=== PATIENT | male | born 1945 | race Caucasian/White ===

== ENCOUNTER 2023-12-01 15:03 | Outpatient (CLI) | payer MEDICARE, SELFPAY ==
--- NOTE | ~2023-12-01 | MR_ITS ---
EXAMINATION: MR abdomen wo/w con DATE: 12/01/2023 16:15 INDICATION: Liver mass TECHNIQUE: Magnetic resonance imaging (MRI) of the abdomen was performed without and with 15 mL Multi stanislav intravenous contrast. Sequences included coronal T2-weighted SS-FSE, coronal and axial FS 2D-F IESTA, axial STIR FSE, axial T2-weighted SS-FSE, axial T2-weighted FS SS-FSE, axial diffusion-weighte d SE, axial dual-echo T1-weighted FSPGR, and axial and coronal T1-weighted LAVA. Postcontrast axial T 1-weighted LAVA images were obtained in a time course. Postcontrast coronal T1-weighted LAVA images w ere obtained. COMPARISON: None. FINDINGS: Heart size is normal. No pericardial or pleural effusion. There are a few T2 hyperintense nonenhancin g cysts scattered throughout the liver the largest in the left hepatic lobe measuring 2.7 cm and 1.5 cm and the remainder all less than 1 cm. There are also a couple T2 hyperintense nodules the liver me asuring 1.1 cm in the right hepatic lobe, and 1.3 cm in the left hepatic lobe which demonstrate rela tively intense early peripheral enhancement which progressively fills in remaining visible with no wa shout on the 10 minute delayed images which would be most consistent with hemangiomas. 1.2 cm and 4 m m T2 hyperintense nonenhancing left renal cyst. Right kidney is normal. Bilateral adrenal glands, gonzáles creas, gallbladder and spleen are normal. Visualized portions of bowels are unremarkable. No patholog ically enlarged abdominal lymphadenopathy. There are several T1 hyperintense and fat saturating heman giomas in the thoracic and lumbar spine. Severe lumbar spondylosis. IMPRESSION: 1. Combination of a few hepatic cysts and hemangiomas scattered throughout the liver as detailed abov e. Reviewed, dictated and finalized at location [facility]. IMPRESSION: 1. Combination of a few hepatic cysts and hemangiomas scattered throughout the liver as detailed above.
== END 2023-12-01 15:04 ==
LOC: MICIMG 15:05
PROVIDERS: PCP Urology; Visit Provider Urology
DX: C61 Malignant neoplasm of prostate (principal)
CPT/HCPCS: 74183; A9577

== ENCOUNTER 2024-07-21 20:55 | Emergency (ER) | payer MEDICARE, SELFPAY ==
[2024-07-21] VITALS (14 sets, daily range): BP systolic 106–125; BP diastolic 76–94; PULSE 93–116; RESP 14–39; TEMP 36.4; O2SAT 97–100
--- NOTE | ~2024-07-21 | CT_ITS ---
EXAMINATION: CT brain wo con DATE: 07/21/2024 21:27 INDICATION: Change in mental status TECHNIQUE: Computed tomography (CT) of the head was performed without intravenous contrast. The mA wa s adjusted according to patient size. Iterative reconstruction technique was employed. Exam dose: 75 6.67 mGy-cm total exam DLP. COMPARISON: None FINDINGS: There is a large subdural hematoma along the right frontal, parietal, temporal and occipita l regions with effacement of the underlying cortical sulci and midline structures. There is a small posterior left occipital acute subdural hematoma. There is a contusion along the medial aspect of the left frontal lobe Prominent bilateral vertebral artery calcification, basilar artery and prominent bilateral carotid si phon internal carotid artery calcifications. The mastoid air cells and paranasal sinuses are normally developed and aerated; there is however 12 x 13.7 mm polyp or mucus retention cyst in the lower right maxillary sinus No skull fracture or bone destruction is detected. IMPRESSION: Right acute subdural hematoma and small posterior left occipital acute subdural hematoma , contusion of the medial left frontal lobe. There is leftward shift of the midline. Dr. Lemus telephoned the report including the acute subdural hematomas 2 Rosa Maria, physician personal assistant, o n 07/20 08/02 and 19/11/2019 0138 hours Reviewed, dictated and finalized at [facility]. Reviewed, dictated and finalized at [facility]. ROUTEMAN IMPRESSION: Right acute subdural hematoma and small posterior left occipital a cute subdural hematoma, contusion of the medial left frontal lobe. There is lef tward shift of the midline. Dr. Lemus telephoned the report including the acute subdural hematomas 2 Rosa Maria physician personal assistant, on 07/20 08/02 and 19/11/2019 0138 hours
--- NOTE | 2024-07-21 20:59 | ED_ITS ---
HPI - General Adult General Chief complaint: Altered Mental Status Stated complaint: altered mental status History of Present Illness HPI narrative: 78-year-old male presents to the emergency department for evaluation for a repeat head CT. Patient had a fall on on July 10. Patient reports that he needed assistance tonight at the rehab facility and was calling out for help. care home was concerned that the patient was more confused during the episode and had him transported the emergency department for evaluation. Upon arrival to the ED patient is alert and oriented in denies any complaints at this time. Related Data Home Medications ?Medication ?Instructions ?Recorded ?Confirmed ?Last Taken ?Type acetaminophen 500 mg capsule 500 mg PO Q4H PRN pain 07/20/24 07/20/24 Unknown History apixaban 5 mg tablet 5 mg PO BID 07/20/24 07/20/24 Unknown History enoxaparin 30 mg/0.3 mL 30 mg subcut Q12H 07/20/24 07/20/24 Unknown History subcutaneous syringe levetiracetam 500 mg tablet 500 mg PO BID 07/20/24 07/20/24 Unknown History (Keppra) melatonin 3 mg tablet 3 mg PO HS 07/20/24 07/20/24 Unknown History paroxetine HCl 30 mg tablet 30 mg PO QAM 07/20/24 07/20/24 Unknown History polyethylene glycol 3350 17 gram 17 g PO DAILY 07/20/24 07/20/24 Unknown History oral powder packet (Miralax) sennosides 8.6 mg tablet (Senna 8.6 mg PO DAILY 07/20/24 07/20/24 Unknown History Laxative) simvastatin 20 mg tablet 20 mg PO DAILY 07/20/24 07/20/24 Unknown History simvastatin 20 mg tablet 20 mg PO HS 07/20/24 07/20/24 Unknown History sodium chloride 1,000 mg soluble 1,000 mg PO BID 07/20/24 07/20/24 Unknown History tablet tamsulosin 0.4 mg capsule (Flomax) 0.4 mg PO DAILY 07/21/24 07/21/24 Unknown History Allergies Allergy/AdvReac Type Severity Reaction Status Date / Time No Known Allergies Allergy Verified 07/21/24 21:02 Review of Systems Review of Systems: All systems reviewed & are unremarkable except as noted in HPI and below PMFSH Past Medical History Medical History (Updated 07/21/24 @ 23:21 by Cristobal Sauceda MD) DJD (degenerative joint disease) of knee Atrial fibrillation Prostate cancer HTN (hypertension) Anxiety and depression Social History Social History Smoking status: Never smoker Alcohol intake: former Substance use: never Do You Feel Safe in your Home?: Yes Lack of Transportation: No Lack of Food: Never True Current Housing: I Have Housing Concerned About Future Housing: No Difficulty Paying Gas/Electric Bills: No Difficulty Paying for Meds: No Currently Unemployed: No Education: High School Diploma/GED Difficulty w/ Childcare or Family Care: No Spiritual care concerns: No Course Vital Signs Vital signs: Vital Signs Pulse Rate 112 H 07/21/24 20:48 Respiratory Rate 18 07/21/24 20:48 Blood Pressure 112/76 07/21/24 20:48 Pulse Oximetry 99 07/21/24 20:48 Oxygen Delivery Room Air 07/21/24 20:48 Temperature 97.5 F L 07/21/24 20:58 Pulse Rate 111 H 07/22/24 04:35 Respiratory Rate 20 07/22/24 04:30 Blood Pressure 142/87 H 07/22/24 04:30 Pulse Oximetry 100 07/22/24 04:30 Oxygen Delivery Room Air 07/21/24 20:59 Medical Decision Making MDM Narrative Medical decision making narrative: 78-year-old male presents emergency department for evaluation for an episode increased confusion. Patient is back to his normal baseline. Head CT does show chronic changes. I discussed the case with Dr. Peterson who was on [facility] for neurosurgery and he reviewed the images with Dr. Lemus and he feels that the CT is actually improved. Since patient is back to his baseline and is following co mmands he was comfortable the patient being discharged back to the rehab facility. Differential Diagnosis Differential Diagnosis: Subdural hematoma, subarachnoid hemorrhage, UTI, COVID Vital Signs Vital Signs: Vital Signs Pulse Rate 112 H 07/21/24 20:48 Respiratory Rate 18 07/21/24 20:48 Blood Pressure 112/76 07/21/24 20:48 Pulse Oximetry 99 07/21/24 20:48 Oxygen Delivery Room Air 07/21/24 20:48 Temperature 97.5 F L 07/21/24 20:58 Pulse Rate 111 H 07/22/24 04:35 Respiratory Rate 20 07/22/24 04:30 Blood Pressure 142/87 H 07/22/24 04:30 Pulse Oximetry 100 07/22/24 04:30 Oxygen Delivery Room Air 07/21/24 20:59 Imaging Data Radiologist's impression: Impressions Head CT 07/21/24 21:31 IMPRESSION: Right acute subdural hematoma and small posterior left occipital acute subdural hematoma, contusion of the medial left frontal lobe. There is leftward shift of the midline. Dr. Lemus telephoned the report including the acute subdural hematomas 2 Rosa Maria, physician botany laboratory assistant, on 07/20 08/02 and 19/11/2019 0138 hours ADDENDUM: 07/21/24 2302 The right subdural hematoma appears acute/subacute and measures up to approximately 1.3 cm depth. There is approximately 5.8 mm the subacute/acute subdural along the anterior right falx. There is approximately 6 mm leftward midline shift. The left occipital acute subdural hematomas approximately 5.5 mm depth. Discharge Plan Discharge Clinical Impression: AMS (altered mental status), Subdural hematoma Patient Disposition: NH Group Home/Asst Living Condition: Stable Instructions: Antibiotic Form Additional Instructions: Your head CT today was improved compared to your recent head CTs at [facility]. No evidence of urinary tract infection. Continue have close follow-up with your physicians. If you have any worsening symptoms then please call or return to the emergency department. Patient Language: Faroese Prescriptions: No Action acetaminophen 500 mg capsule 500 mg PO Q4H PRN (Reason: pain) apixaban 5 mg tablet 5 mg PO BID enoxaparin 30 mg/0.3 mL syringe 30 mg subcut Q12H Patient Comments: for 4 days levetiracetam [Keppra] 500 mg tablet 500 mg PO BID melatonin 3 mg tablet 3 mg PO HS polyethylene glycol 3350 [Miralax] 17 gram powder in packet 17 g PO DAILY sennosides [Senna Laxative] 8.6 mg tablet 8.6 mg PO DAILY sodium chloride 1,000 mg tablet,soluble 1,000 mg PO BID Patient Comments: sodium chloride 1 gm take 2 tablets by mouth 3 times daily with meals simvastatin 20 mg tablet 20 mg PO DAILY simvastatin 20 mg tablet 20 mg PO HS paroxetine HCl 30 mg tablet 30 mg PO QAM tamsulosin [Flomax] 0.4 mg capsule 0.4 mg PO DAILY Follow-up/Referrals: Orly,Sg Curiel MD [Primary Care Provider] -
--- NOTE | 2024-07-21 21:02 | ECG_ITS ---
Test Date: 2024-07-21 20:57:58 Measurements Intervals Blanca Rate: 101 P: 0 RI: 0 QRS: 52 QRSD: 98 T: 43 QT: 378 QTc: 492 Interpretive Statements ATRIAL FIBRILLATION WITH RAPID VENTRICULAR RESPONSE VOLTAGE CRITERIA FOR LVH [MEETS CRITERIA IN ONE OF: R(aVL), S(V1), R(V5), R(V5/V6)+S(V1)] NONSPECIFIC ST & T-WAVE ABNORMALITY No previous ECG available for comparison Electronically Signed On 07-22-2024 10:23:13 [employer] SALES [employer]ENT by Aleyda Duong M.D.
--- NOTE | 2024-07-21 21:12 | PC.NURSE ---
Patient taken to CT via stretcher at this time.
--- NOTE | 2024-07-21 23:42 | PC.NURSE ---
Report called to PAUL Riley at [facility] at [id number].
[2024-07-22] VITALS (10 sets, daily range): BP systolic 122–142; BP diastolic 62–109; PULSE 94–135; RESP 15–28; O2SAT 97–100
--- NOTE | 2024-07-22 00:40 | PC.NURSE ---
Patients family member calls this RN into room. Patient requesting to rinse his mouth out in the bathroom. Patient informed that he is unable to get up at this time. patient given water and emesis bag to rinse his mouth. Patients family member notified that earliest ETA at this time for transport back is 0730. Patients family member states she is going to leave but requests med be given to patient to help calm his nerves. ERP notified of patients family member request. Patient also unsure of where he is at this time. ERP notified of patients increased confusion. Patient readjusted in bed, re oriented and given call light. No new orders at this time.
[2024-07-22] MEDS: LORazepam INJ (*CRX) 2 MG/ML VIAL 1 MG IV PUSH (00:56)
--- NOTE | 2024-07-22 02:36 | PC.NURSE ---
Patient more confused, stating he is at home and wants his clothes to be put into the front room on the couch. Patient stating I need my phone or that one over there, and I need my cane up against the wall over there. Patient reoriented to being in the ER, that there is no phone that he arrived with, no phone in the other room, no cane that he arrived with. Patient remains confused. Patient yelling out and trying to get up. Patient has call light in reach. Patient moved from H3 to room 6 to be monitored more closely. Patient reoriented. ERP notified of patients confusion and VS of HR in 120s.
--- NOTE | 2024-07-22 04:14 | PC.NURSE ---
Patient constantly removing monitoring equipment, and yelling. Patient confused on place, time, but oriented to his name. Patient constantly asking for a phone, and his home. Patient repeatedly reoriented to place, time and situation but patient immediately forgets. ERP aware of patients symptoms.
[2024-07-22] MEDS: METOPROLOL TARTRATE 25 MG TABLET PO (04:35)
--- NOTE | 2024-07-22 04:36 | PC.NURSE ---
Patient continues to yell and request a phone, his cane, his belongings to be placed in the front room of the house . Patient reoriented to place, time and situation and readjusted in the bed. VS taken, and call light within reach. Patient did agree to take his metoprolol PO. Patient tolerated well with a drink of water.
== END 2024-07-22 08:56 ==
PROVIDERS: Emergency Provider Emergency Medicine; PCP Internal Medicine
DX: S06.5XAD Traumatic subdural hemorrhage with loss of consciousness status unknown, subsequent encounter (principal); R41.82 Altered mental status, unspecified; I48.91 Unspecified atrial fibrillation; I10 Essential (primary) hypertension; M17.9 Osteoarthritis of knee, unspecified; F32.A Depression, unspecified; F41.9 Anxiety disorder, unspecified; Z79.01 Long term (current) use of anticoagulants; Z79.899 Other long term (current) drug therapy; W19.XXXD Unspecified fall, subsequent encounter
CPT/HCPCS: 70450; 93005; 96374; 99284; A9270; J2060